=== PATIENT | female | born 1975 | race Caucasian/White ===

== ENCOUNTER 2018-10-08 08:16 | Emergency (ER) | payer MEDICAID ==
[~2018-10-08] VITALS: Ht 157.5 cm; Wt 73.6 kg
[2018-10-08 08:19] VITALS: Ht 157.5 cm; Wt 73.6 kg
[2018-10-08] MEDS ORDERED: LEXAPRO20 MG PO (08:22)
[2018-10-08] MEDS ORDERED: TYLENOL W/CODEI1 TAB PO (08:57)
[2018-10-08 09:56] VITALS: BP 143/69
== END 2018-10-08 09:58 | disposition home or self-care (01) ==
LOC: D.ER 08:16
DX: S52.501A Unspecified fracture of the lower end of right radius, initial encounter for closed fracture (principal); W10.9XXA Fall (on) (from) unspecified stairs and steps, initial encounter; Y93.89 Activity, other specified; Y92.89 Other specified places as the place of occurrence of the external cause

== ENCOUNTER → 2020-02-16 09:00 | Outpatient (CLI) | payer OTHER ==
[2018-10-08 08:19] VITALS: BMI 29.7
[~2020-02-16 09:00] MED LIST: LEXAPRO20 MG PO; TYLENOL W/CODEI1 TAB PO
== END | disposition home or self-care (01) ==
LOC: D.MAMMO 01-03 08:30
PROVIDERS: ATTEND Family Medicine
DX: Z12.31 Encounter for screening mammogram for malignant neoplasm of breast (principal)

== ENCOUNTER 2020-03-14 19:13 | Emergency (ER) | payer OTHER ==
[~2020-03-14] VITALS: Ht 157.5 cm; Wt 77.3 kg
[2020-03-14 19:19] VITALS: Ht 157.5 cm; Wt 77.3 kg
[2020-03-14] MEDS ORDERED: LAMICTAL200 M1 PO (19:25)
[2020-03-14] MEDS ORDERED: CELEXA20 MG PO (19:25)
[2020-03-14] MEDS ORDERED: ATARAX 25 MG TA25 MG PO (19:26)
[2020-03-14 19:50] LABS: BASOPHILS 0.7 % (0-2); EOSINOPHILS 3.8 % (0-7); HEMATOCRIT 41.1 % (36.0-48.0); HEMOGLOBIN 13.7 g/dL (12-16); IMMATURE GRANULOCYTES 0.2 % (0-5); LYMPHOCYTES 28.3 % (15-50); MCH 31.9 pg (26.0-34.0); MCHC 33.3 g/dL (31.0-37.0); MCV 95.6 fL (80.0-100.0); MEAN PLATELET VOLUME 10.1 fL (7.4-10.4); MONOCYTES 9.9 % (2-11); NEUTROPHILS 57.1 % (40-80); RDW 12.4 % (11.5-14.5); WBC 8.9 10x3/uL (4.8-10.8)
[2020-03-14 20:05] LABS: PLATELET COUNT 246 10x3/uL (130-400)
[2020-03-14 20:06] LABS: ANION GAP 9.9 mmol/L (8-16); CALCIUM 8.5 mg/dL (8.5-10.1); CARBON DIOXIDE 28.1 mmol/L (21.0-32.0)
[2020-03-14 20:11] LABS: ALBUMIN 4.2 g/dL (3.4-5.0); BILIRUBIN - TOTAL 0.23 mg/dL (0.2-1.3); PROTEIN - SERUM 7.6 g/dL (6.4-8.2)
[2020-03-14] MEDS ORDERED: TYLENOL #4 W/CO1 TAB PO (20:31)
[2020-03-14 20:53] VITALS: BP 128/89
== END 2020-03-14 20:35 | disposition home or self-care (01) ==
LOC: D.ER 19:13
PROVIDERS: Family Medicine
DX: M54.2 Cervicalgia (principal); V89.2XXA Person injured in unspecified motor-vehicle accident, traffic, initial encounter; Y93.9 Activity, unspecified; Y92.9 Unspecified place or not applicable; R51 Headache; R07.9 Chest pain, unspecified

== ENCOUNTER 2020-04-23 14:30 | Outpatient (CLI) | payer OTHER ==
[2020-03-14 19:19] VITALS: BMI 31.1
[~2020-04-23 14:30] MED LIST changes: +ATARAX 25 MG TA25 MG PO; +CELEXA20 MG PO; +LAMICTAL200 M1 PO; +TYLENOL #4 W/CO1 TAB PO
== END 2020-04-23 15:00 | disposition home or self-care (01) ==
LOC: D.MAMMO 14:30
PROVIDERS: ATTEND Family Medicine
DX: R92.2 Inconclusive mammogram (principal)

== ENCOUNTER 2021-03-23 10:47 | Emergency (ER) | payer OTHER ==
[~2021-03-23] VITALS: Ht 160 cm; Wt 83.6 kg
[~2021-03-23 10:47] MED LIST changes: +VISTARIL50 MG PO
[2021-03-23 11:07] VITALS: Ht 160 cm; Wt 83.6 kg
[2021-03-23] MEDS ORDERED: DEXILANT60 MG PO (11:11)
[2021-03-23] MEDS ORDERED: AMITRIPTYLINE H50 MG PO (11:11)
[2021-03-23] MEDS ORDERED: AMBIEN5 MG PO (11:11)
[2021-03-23] MEDS ORDERED: XANAX0.5 MG PO (11:11)
[2021-03-23 11:40] LABS: HEMATOCRIT 41.5 % (36.0-48.0); HEMOGLOBIN 14.2 g/dL (12-16); MCH 32.8 pg (26.0-34.0); MCHC 34.4 g/dL (31.0-37.0); MCV 95.5 fL (80.0-100.0); MONOCYTES 5.7 % (2-11); NEUTROPHILS 65.3 % (40-80); PLATELET COUNT 254 10x3/uL (130-400); RBC 4.34 10x6/uL (4.00-5.40); RDW 13.1 % (11.5-14.5); WBC 8.3 10x3/uL (4.8-10.8)
[2021-03-23 11:50] LABS: CALC OSMOLALITY 278 mosm/kg (275-300); CALCIUM 9.2 mg/dL (8.5-10.1); CARBON DIOXIDE 24.2 mmol/L (21.0-32.0); CHLORIDE - SERUM 105 mmol/L (98-107); GLUCOSE 136 mg/dL (74-106); POTASSIUM - SERUM 4.1 mmol/L (3.5-5.1); SODIUM 138 mmol/L (136-145); UREA NITROGEN 14 mg/dL (7-18); eGFR NON AFRICAN AMERICAN 64 mL/min (90-120)
[2021-03-23 11:58] LABS: ALKALINE PHOSPHATASE 80 U/L (30-120); ALT (SGPT) 26 U/L (10-68); AMYLASE - SERUM 63 U/L (25-115); BILIRUBIN - TOTAL 0.26 mg/dL (0.2-1.3); LIPASE 150 U/L (73-393); PROTEIN - SERUM 7.8 g/dL (6.4-8.2); TROPONIN-I < 0.017 ng/mL (0.000-0.060)
[2021-03-23 12:32] LABS: HCG URINE NEGATIVE (NEGATIVE)
[2021-03-23 12:37] LABS: BACTERIA FEW HPF (<MOD); BILIRUBIN NEGATIVE (NEGATIVE); KETONE NEGATIVE mg/dL (< 1+); NITRITE NEGATIVE (NEGATIVE); PH 5.5 (5.0-8.0); SQUAMOUS EPITHELIAL 1 HPF (0-4); UROBILINOGEN NORMAL mg/dL (< 2)
[2021-03-23] MEDS ORDERED: FLAGYL500 MG PO (12:57)
[2021-03-23] MEDS ORDERED: BENTYL 20 MG TA20 MG PO (12:57)
[2021-03-23] MEDS ORDERED: CIPRO500 MG PO (12:57)
[2021-03-23 13:17] VITALS: BP 131/88
== END 2021-03-23 13:30 | disposition home or self-care (01) ==
LOC: D.ER 10:47
PROVIDERS: Family Medicine
DX: R10.9 Unspecified abdominal pain (principal); K52.9 Noninfective gastroenteritis and colitis, unspecified